=== PATIENT | male | born 2000 ===

== ENCOUNTER 2025-09-04 11:40 | Outpatient (CLI) | payer OTHER, SELFPAY ==
--- NOTE | 2025-09-04 09:30 | DI.RAD_ITS ---
Exam(s) XR SHOULDER RT COMPLETE 2+V EXAM: XR SHOULDER RT COMPLETE 2+V CLINICAL HISTORY: HX OF RIGHT SHOULDER DISLOCATION. TECHNIQUE: 2D digital imaging was performed. COMPARISON: XA FL ARTHROGRAM SHOULDER RIGHT INJECTION from 11/20/2021 FINDINGS: Two views No evidence of fracture or dislocation of the glenohumeral joint. Bone density normal. No osseous lesions. No soft tissue calcifications. There is slight offset of the AC joint noted on the Grashey view, possibly significant. There is no fracture of the clavicle. Coracoid process is intact. IMPRESSION: As above DATA REPOSITORY: RADIATION DOSE DELIVERED:
== END 2025-09-04 11:41 | disposition home or self-care (01) ==
LOC: DIORS 11:41
PROVIDERS: Visit Provider Student in an Organized Health Care Education/Training Program
DX: M25.511 Pain in right shoulder (principal)
CPT/HCPCS: 73030

== ENCOUNTER → 2025-09-26 02:05 | Outpatient (CLI) | payer OTHER, SELFPAY ==
--- NOTE | 2025-09-26 | DI.MRI_ITS ---
Exam(s) MR UPPER JOINT RT WO EXAM: MR UPPER JOINT RT WO CLINICAL HISTORY: M25.311 other instability, RT shoulder, discomfort w/ROM,recurrent dislocat. TECHNIQUE: Multiplanar multisequence MRI was performed. COMPARISON: Plain films 04 September 2025 FINDINGS: Exam is limited by motion. BONES: There is no fracture or contusion pattern. JOINTS:The acromioclavicular joint is normal. The glenohumeral joint is normal. TENDONS: Supraspinatus: Unremarkable. Infraspinatus: Unremarkable. Subscapularis: Unremarkable. Teres Minor: Unremarkable. Biceps and Crary: Unremarkable. MUSCLES: Unremarkable. GLENOID LABRUM: Unremarkable on this noncontrast examination. SOFT TISSUES: Unremarkable. BURSAE: Subacromial and subdeltoid bursae shows no fluid. IMPRESSION: Unremarkable MRI of the shoulder. DATA REPOSITORY:
== END ==
DX: M25.311 Other instability, right shoulder (principal)
CPT/HCPCS: 73221